=== PATIENT | female | born 1985 | race Caucasian/White ===

== ENCOUNTER 2017-06-22 10:21 | Observation (INO) | payer MEDICAID ==
--- NOTE | 2017-06-22 10:35 | EDPHY ---
H & P Stated Complaint: ABD PAIN Time Seen by Provider: 06/22/17 10:35 HPI/ROS: CHIEF COMPLAINT: Severe abdominal pain HISTORY OF PRESENT ILLNESS: The patient presents to the ED with severe right upper quadrant abdominal pain which began earlier today. The patient reports the pain radiates to her back and is associated with nausea. She denies prior history of the symptoms. The patient has no history of abdominal surgery. She denies hematuria or dysuria. The patient reports her pain is currently a 10/ 10. REVIEW OF SYSTEMS: A comprehensive 10 point review of systems is otherwise negative aside from elements mentioned in the history of present illness. Source: Patient Exam Limitations: No limitations - Personal History Current Tetanus/Diphtheria Vaccine: Yes - Medical/Surgical History Hx Asthma: No Hx Chronic Respiratory Disease: No Hx Diabetes: No Hx Cardiac Disease: No Hx Renal Disease: No Hx Cirrhosis: No Hx Alcoholism: No Hx HIV/AIDS: No Hx Splenectomy or Spleen Trauma: No - Social History Smoking Status: Never smoked Alcohol Use: None Drug Use: None - Physical Exam Exam: General Appearance: Alert, mild discomfort secondary to pain Eyes: Pupils equal and round no pallor or injection ENT, Mouth: Mucous membranes moist Respiratory: There are no retractions, lungs are clear to auscultation Cardiovascular: Regular rate and rhythm Gastrointestinal: Epigastric and right upper quadrant tenderness to palpation, no peritoneal signs Neurological: A&O, normal motor function, normal sensory exam, normal cranial nerves Skin: Warm and dry, no rashes Musculoskeletal: Neck is supple nontender Extremities: symmetrical, full range of motion Constitutional: Initial Vital Signs Temperature (C) 36.8 C 06/22/17 10:28 Heart Rate 80 06/22/17 10:28 Respiratory Rate 16 06/22/17 10:28 Blood Pressure 137/80 H 06/22/17 10:28 O2 Sat (%) 96 06/22/17 10:28 O2 Delivery Mode Room Air Allergies/Adverse Reactions: No Known Allergies Allergy (Unverified 06/22/17 10:27) Home Medications: Medication Instructions Recorded NK [No Known Home Meds] 06/22/17 Medical Decision Making - Diagnostics Imaging Results: Imaging Impressions Abdomen Ultrasound 06/22/17 10:49 Impression: 1. Cholelithiasis with mildly hydropic gallbladder is opacified with sludge and multiple subcentimeter gallstones. 2. Common bile duct obscured by bowel gas. 3. Mild hepatomegaly and hepatic steatosis without definite ascites. Findings and recommendations discussed with Emergency Department physician, Haroldo Rodriguez at 1150 hour, 06/22/2017. Final report concurs with initial preliminary interpretation. ED Course/Re-evaluation: The patient presents to the ED for evaluation of severe acute right upper quadrant pain and associated nausea. The patient denies prior history of the symptoms. She was noted to have moderate tenderness on exam. Patient had an IV established. She received normal saline be hydration, IV Dilaudid and Zofran. The patient was taken for stat abdominal ultrasound which demonstrates a distended gallbladder with numerous gallstones. The patient was re-evaluated at 11:50 a.m. and continues to have severe pain and tenderness. Consultation was made with Dr. Victor Manuel Garzon from General surgery. The patient will be admitted to the hospital for a likely cholecystitis. She received IV Invanz in the emergency department. Differential Diagnosis: Differential diagnosis includes cholecystitis, pancreatitis, gastroenteritis, dehydration - Data Points Laboratory Results: Laboratory Results 06/22/17 10:35 06/22/17 10:35 06/22/17 06/22/17 06/22/17 10:35 10:35 10:35 WBC 8.29 10^3/uL 10^3/uL (3.80-9.50) RBC 4.72 10^6/uL 10^6/uL (4.18-5.33) Hgb 13.1 g/dL g/dL (12.6-16.3) Hct 38.8 % % (38.0-47.0) MCV 82.2 fL fL (81.5-99.8) MCH 27.8 pg L pg (27.9-34.1) MCHC 33.8 g/dL g/dL (32.4-36.7) RDW 12.7 % % (11.5-15.2) Plt Count 225 10^3/uL 10^3/uL (150-400) MPV 10.1 fL fL (8.7-11.7) Neut % (Auto) 78.1 % H % (39.3-74.2) Lymph % (Auto) 17.5 % % (15.0-45.0) Shelby % (Auto) 3.0 % L % (4.5-13.0) Eos % (Auto) 0.4 % L % (0.6-7.6) Baso % (Auto) 0.5 % % (0.3-1.7) Nucleat RBC Rel Count 0.0 % % (0.0-0.2) Absolute Neuts (auto) 6.48 10^3/uL 10^3/uL (1.70-6.50) Absolute Lymphs (auto) 1.45 10^3/uL 10^3/uL (1.00-3.00) Absolute Monos (auto) 0.25 10^3/uL L 10^3/uL (0.30-0.80) Absolute Eos (auto) 0.03 10^3/uL 10^3/uL (0.03-0.40) Absolute Basos (auto) 0.04 10^3/uL 10^3/uL (0.02-0.10) Absolute Nucleated RBC 0.00 10^3/uL 10^3/uL (0-0.01) Immature Gran % 0.5 % % (0.0-1.1) Immature Gran # 0.04 10^3/uL 10^3/uL (0.00-0.10) Sodium 143 mEq/L mEq/L (134-144) Potassium 4.2 mEq/L mEq/L (3.5-5.2) Chloride 105 mEq/L mEq/L (97-110) Carbon Dioxide 26 mEq/l mEq/l (22-31) Anion Gap 12 mEq/L mEq/L (8-16) BUN 14 mg/dL mg/dL (7-23) Creatinine 0.8 mg/dL mg/dL (0.6-1.0) Estimated GFR > 60 Glucose 117 mg/dL H mg/dL (70-100) Calcium 9.5 mg/dL mg/dL (8.5-10.4) Total Bilirubin 0.6 mg/dL mg/dL (0.1-1.4) Conjugated Bilirubin 0.3 mg/dL mg/dL (0.0-0.5) Unconjugated Bilirubin 0.3 mg/dL mg/dL (0.0-1.1) AST 26 IU/L IU/L (14-46) ALT 41 IU/L IU/L (9-52) Alkaline Phosphatase 77 IU/L IU/L (38-126) Total Protein 7.8 g/dL g/dL (6.3-8.2) Albumin 4.4 g/dL g/dL (3.5-5.0) Lipase 118 IU/L IU/L (23-300) Beta HCG, Qual NEGATIVE Medications Given: Discontinued Medications Ertapenem (Invanz) 1 gm IVP EDNOW ONE PRN Reason: Protocol Stop: 06/22/17 11:53 Last Admin: 06/22/17 11:58 Dose: 1 gm Hydromorphone HCl (Dilaudid) 0.5 mg IVP EDNOW ONE Stop: 06/22/17 10:49 Last Admin: 06/22/17 10:52 Dose: 0.5 mg Hydromorphone HCl (Dilaudid) 1 mg IVP EDNOW ONE Stop: 06/22/17 11:53 Last Admin: 06/22/17 11:57 Dose: 1 mg Ondansetron HCl (Zofran) 4 mg IVP EDNOW ONE Stop: 06/22/17 10:49 Last Admin: 06/22/17 10:53 Dose: 4 mg Departure - Departure Disposition: [facility] Inpatient Acute Clinical Impression: Acute cholecystitis Condition: Good Referrals: [facility] [Other] - As per Instructions Print Language: Mexican
[2017-06-22] MEDS ORDERED: ONDANSETRON 4 MG/2 ML VIAL IVP ONE (10:48)
[2017-06-22] MEDS ORDERED: HYDROmorphONE/DILAUDID 1 MG/ML INJ IVP ONE ×2 (10:48→11:52)
[2017-06-22 10:54] LABS: PLATELET COUNT 225 10^3/uL (150-400)
[2017-06-22] MEDS ORDERED: ERTAPENEM 1 GM VIAL IVP ONE (11:52)
[2017-06-22] MEDS ORDERED: ONDANSETRON 4 MG/2 ML VIAL IVP PRN ×2 (12:14→14:44)
[2017-06-22] MEDS ORDERED: D5W 1/2 NS 1,000 ML IV SCH (12:15)
--- NOTE | 2017-06-22 12:36 | GHP ---
[f rep st] HISTORY AND PHYSICAL DATE OF ADMISSION: 06/22/2017 CHIEF COMPLAINT: Right upper quadrant pain, 24 hours. HISTORY OF PRESENT ILLNESS: Right upper quadrant pain, nausea, vomiting in this 32-year-old [place] female and ultrasound shows gallstones, slightly distended gallbladder. Laboratory exams ar e all relatively normal. PAST MEDICAL HISTORY: None. ALLERGIES: None. CURRENT MEDICATIONS: None. SOCIAL HISTORY: Nonsmoker. No alcohol use. REVIEW OF SYSTEMS: Denies asthma, heart trouble, diabetes, epilepsy, rheumatic fever. PREVIOUS SURGERY: None. PHYSICAL EXAM: HEENT: No scleral icterus. Pharynx clear. NECK: Supple without adenopathy. LUNGS : Clear. HEART: Normal S1, S2, without murmur. ABDOMEN: Soft, tender in the right upper quadrant . No mass. EXTREMITIES: Normal. NEUROLOGICAL: Normal. ASSESSMENT: Unrelenting right upper quadrant pain with cholelithiasis, possible hydrops of the gallb ladder. RECOMMENDATIONS: Admission for laparoscopic cholecystectomy. The risks and benefits of the procedur e including potential for infection, bleeding, postoperative discomfort, need for an open operation, all have been explained to the patient. /[id number]/MODL
[2017-06-22] MEDS ORDERED: BUPIVACAINE/EPI 0.5% 30 ML SDV ONE (12:42)
[2017-06-22] MEDS ORDERED: MIDAZOLAM 2 MG/2 ML VIAL IVP ONE (12:48)
--- NOTE | 2017-06-22 12:48 | PDANEPAE ---
ANE History of Present Illness Acute abd pain ANE Past Medical History - Pulmonary History Hx Oxygen in Use at Home: No Hx Sleep Apnea: No - Endocrine History Hx Diabetes: No ANE Review of Systems Review of Systems: - Exercise capacity METS (RN): 4 METS ANE Patient History - Allergies Allergies/Adverse Reactions: No Known Allergies Allergy (Unverified 06/22/17 10:27) - Home Medications Home medications: home medication list seen and reviewed Home Medications: NK [No Known Home Meds] 06/22/17 [Last Taken Unknown] - NPO status NPO Since - Liquids (Date): 06/22/17 NPO Since - Liquids (Time): 08:00 NPO Since - Solids (Date): 06/21/17 - Anes Hx Anes Hx: no prior problems (Dental only) - Smoking Hx Smoking Status: Never smoked - Alcohol Use Alcohol Use: None ANE Labs/Vital Signs - Labs Result Diagrams: 06/22/17 10:35 06/22/17 10:35 - Vital Signs Blood Pressure: 131/76 Heart Rate: 64 Respiratory Rate: 16 O2 Sat (%): 95 Weight: 99.79 kg ANE Physical Exam - Airway Neck exam: FROM Mallampati Score: Class 2 Mouth exam: normal dental/mouth exam - Pulmonary Pulmonary: no respiratory distress - Cardiovascular Cardiovascular: regular rate and rhythym - ASA Status ASA Status: II, E ANE Anesthesia Plan Anesthesia Plan: general endotracheal anesthesia
[2017-06-22] MEDS ORDERED: PROPOFOL 200 MG/20 ML VIAL ONE (12:58)
[2017-06-22] MEDS ORDERED: fentaNYL 100 MCG/2 ML INJ ONE ×3 (12:58→14:45)
[2017-06-22] MEDS ORDERED: LIDOCAINE 1% 2 ML INJ ID PRN (13:00)
[2017-06-22] MEDS ORDERED: LR 1,000 ML IV ONE (13:00)
[2017-06-22] MEDS ORDERED: ROCURONIUM 50 MG/5 ML VIAL ONE (13:01)
[2017-06-22] MEDS ORDERED: DEXAMETHASONE 4 MG/ML VIAL ONE (13:54)
[2017-06-22] MEDS ORDERED: ONDANSETRON 4 MG/2 ML VIAL ONE (14:17)
[2017-06-22] MEDS ORDERED: PHENYLEPHRINE HCL 100 MCG/ML SYR ONE (14:19)
[2017-06-22] MEDS ORDERED: SUGAMMADEX SODIUM 200 MG/2 ML VIAL IVP ONE (14:27)
[2017-06-22] MEDS ORDERED: fentaNYL 100 MCG/2 ML INJ IVP PRN (14:44)
[2017-06-22] MEDS ORDERED: NALOXONE HCL 0.4 MG/ML INJ IVP PRN (14:44)
[2017-06-22] MEDS ORDERED: PROMETHAZINE HCL 25 MG/ML INJ IVP PRN (14:44)
[2017-06-22] MEDS ORDERED: HYDROmorphONE/DILAUDID 1 MG/ML INJ IVP PRN (14:44)
[2017-06-22] MEDS ORDERED: D5W 1/2 NS W/ 20 KCl/L 1,000 ML IV SCH (14:45)
[2017-06-22] MEDS ORDERED: KETOROLAC 30 MG/1 ML SDV ONE (14:46)
[2017-06-22] MEDS ORDERED: KETOROLAC 30 MG/1 ML SDV IVP ONE (14:46)
--- NOTE | 2017-06-22 14:48 | POSTANESTH ---
Post Anesthetic Evaluation Cardiovascular Status: Similar to Pre-Op Cond Respiratory Status: Normal, Stable Level of Consciousness/Mental Status: Alert and Oriented Pain Control: Adequate, Prn Tx Ordered Nausea/Vomiting Control: Adequate, Prn Tx Ordered Complications Possibly Related to Anesthesia: None Noted
--- NOTE | 2017-06-22 18:18 | GPN ---
[f rep st] PROCEDURE NOTE PREOP DIAGNOSES: Cholelithiasis, cholecystitis. POSTOP DIAGNOSES: Same operation, laparoscopic cholecystectomy. Surgeon Duran. INDICATIONS: Patient is a 32-year-old female who presents with unrelenting right upper quadrant pain . Ultrasound documented distended gallbladder and cholelithiasis. PROCEDURE: General anesthetic. The abdomen is scrubbed with ChloraPrep, draped in usual sterile fas hion. Infraumbilical incision made. Veress needle used to achieve a pneumoperitoneum. Two addition al 5 mm ports were placed in the upper abdomen. The gallbladder was distended into grasp, but it had to be aspirated with a spinal needle. This allowed the gallbladder to repush cephalad and then care ful dissection in the Yoon's pouch revealed the cystic duct and artery. Large window was then ma de between the cystic duct and the cystic plate to ensure that ductal anatomy was correctly identifie d. At this point, the artery and duct were clipped and divided. The gallbladder removed from below, upward with electrocautery. There was quite a bit of edema, the dissection was very dry. The gallb ladder was placed in an Endopouch. All gas and fluid was aspirated from the right upper quadrant. T he gallbladder extracted. The fascial defect closed with 0 Vicryl skin with 4-0 Monocryl and Dermabo nd. Patient tolerated the procedure well. /[id number]/MODL
[2017-06-23 04:18] VITALS: RESP 15
--- NOTE | 2017-06-23 06:54 | GDS ---
[f rep st] DISCHARGE SUMMARY PRESENT ILLNESS: Patient was admitted with cholelithiasis. She underwent a laparoscopic cholecystec latesha. Uneventful recovery. DISPOSITION: Home. Follow up with Dr. Garzon in a week. /[id number]/MODL
--- NOTE | 2017-06-23 09:50 | ASDISCHSUM ---
Discharge Information Plan Status:Home with No Needs Medically Cleared to Leave:06/22/2017 Discharge Date:06/22/2017 CM D/C Disposition:Home, Routine, Self-Care ADT D/C Disposition:Home, Routine, Self-Care Projected Discharge Date:06/22/2017 Transportation at D/C:Family Discharge Delay Reason: Follow-Up Date:06/22/2017 Discharge Slot: Final Diagnosis: Placement Information Patient Contact Information Contact Name:MAX Relationship: Address:[address] [place] [address] [address] Work Phone: City:[place] Alternate Phone: State/Zip Code:[place] [address] Email: Financial Information Financial Class:Self-Pay Primary Plan Desc:SELF PAY Primary Plan Number: Secondary Plan Desc: Secondary Plan Number: Assessment Information Intervention Information
[2017-06-23 11:25] VITALS: BP 109/53; PULSE 70; TEMP 98.6; O2SAT 95
== END 2017-06-23 12:44 | disposition home or self-care (01) ==
LOC: F1N 16:06
PROVIDERS: ADMIT Surgery; ATTEND Surgery
PROC: 0FT44ZZ Resection of Gallbladder, Percutaneous Endoscopic Approach (ICD-10-PCS; principal; 2017-06-22 13:00)
DX: K80.00 Calculus of gallbladder with acute cholecystitis without obstruction (principal)
CPT/HCPCS: 96374; G0378; J1100; J1170; J1335; J1885; J2250; J2370; J2405; J2704; J3010

== ENCOUNTER 2018-08-13 21:15 | Emergency (ER) | payer OTHER, MEDICAID | END 2018-08-14 01:55 | disposition home or self-care (01) ==